=== PATIENT | male | born 1990 | race African-American/Black ===

== ENCOUNTER 2019-03-25 11:47 | Emergency (ER) | payer SELFPAY ==
[2019-03-25 12:14] VITALS: BP 143/72; PULSE 85; TEMP 97.5; BMI 30.2
[2019-03-25] MEDS ORDERED: SODIUM CHLORIDE 1,000 ML IV STA (14:01)
[2019-03-25] MEDS ORDERED: KETOROLAC TROMETHAMINE 15 MG/ML VIAL IVPUSH ONE (15:00)
[2019-03-25] MEDS ORDERED: ACETAMINOPHEN 1000 MG/100 ML VIAL (NON FORMULARY) IVPB ONE (15:00)
[2019-03-25] MEDS ORDERED: ACETAMINOPHEN INJECTION 100 ML IVPB ONE (15:17)
[2019-03-25] MEDS ORDERED: KETOROLAC TROMETHAMINE 15 MG/ML VIAL ONE (15:17)
[2019-03-25 15:26] LABS: EOS % 3.8 % (0-4.5); HEMATOCRIT 42.9 % (35.4-49); HEMOGLOBIN 14.4 GM/dL (11.7-16.9); LYMPH % 33.6 % (8-40); MCH 28.8 pg (25.7-33.7); MCHC 33.6 g/dl (32.0-35.9); MEAN CELL VOLUME 85.9 fl (80-96); MEAN PLT VOLUME 8.4 fl (7.5-11.1); MONO % 9.6 % (3.8-10.2); PLATELET COUNT 254 K/MM3 (134-434); RDW 11.8 % (11.9-15.9); WHITE BLOOD COUNT 5.7 K/mm3 (4.0-10.0)
[2019-03-25 15:36] LABS: EPI CELLS 0.9 /HPF (0-5/HPF); URINE APPEARANCE CLEAR; URINE BACTERIA 3.4 /hpf (NEGATIVE); URINE BILIRUBIN NEGATIVE (NEGATIVE); URINE CASTS 1 /lpf (0-8); URINE COLOR YELLOW; URINE GLUCOSE (UA) NEGATIVE (NEGATIVE); URINE KETONE TRACE (NEGATIVE); URINE LEUK ESTERASE TRACE (NEGATIVE); URINE NITRITE NEGATIVE (NEGATIVE); URINE PROTEIN NEGATIVE (NEGATIVE); URINE RBC 1 /hpf (0-4); URINE WBC 4 /hpf (0-5)
--- NOTE | 2019-03-25 15:53 | PDOC ---
Documentation entered by Shahida Doan SCRIBE, acting as scribe for Jessenia Small MD. Jessenia Small MD: This documentation has been prepared by the elenaibe, Shahida Doan SCRIBE, under my direction and personally reviewed by me in its entirety. I confirm that the documentation accurately reflects all work, treatment, procedures, and medical decision making performed by me. History of Present Illness - General Chief Complaint: Pain, Acute Stated Complaint: KIDNEY PAIN Time Seen by Provider: 03/25/19 14:00 History Source: Patient Exam Limitations: No Limitations - History of Present Illness Initial Comments: 03/25/19 15:51 The patient is a 28 year old male with no significant past medical history who presents to the emergency department with initial bilateral flank pain for 1 week, worse on left and radiation to left abdomen and groin. Currently with left flank and back pain, rated a 7/10 in severity, intermittent with shooting pain going down to his groin. The patient reports that he has experienced some associated nausea, urinary frequency, and watery diarrhea during this week. The patient reports family history or kidney stones (mother and father). He also reports a known left sided hernia, but no issues. 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 The patient reports that he is sexually active with one partner. He denies any past history of STDs or any current concerns. The patient denies any other symptoms. He denies any fever, chills, constipation, or other urinary symptoms. He denies any chest pain, shortness of breath, headache, dizziness, weakness, numbness, or tingling sensations. He denies any other complaints. It is noted that the patient has been taking 600 mg ibuprofen for pain every 7 hours for his left sided flank pain, with some relief. He states that he did not taking any pain meds today. Past History - Past Medical History Allergies/Adverse Reactions: Allergies Allergy/AdvReac Type Severity Reaction Status Date / Time No Known Drug Allergies Allergy Verified 03/25/19 12:11 pollen extracts Allergy Verified 03/25/19 12:11 Home Medications: Ambulatory Orders Azithromycin [Zithromax -] 250 mg PO UTDICT #6 tab 10/07/17 Ibuprofen 600 mg PO Q6H PRN #20 tablet 03/25/19 COPD: No - Immunization History Immunization Up to Date: Yes - Suicide/Smoking/Psychosocial Hx Smoking History: Current every day smoker Number of Cigarettes Smoked Daily: 2 Information on smoking cessation initiated: No 'Breaking Loose' booklet given: 10/07/17 Hx Alcohol Use: No Drug/Substance Use Hx: No Substance Use Type: None Review of Systems - Review of Systems Able to Perform ROS?: Yes Comments:: 03/25/19 15:51 Review of systems Constitutional: no fevers or chills. HEENT: no headache or dizziness. No congestion. CVS: no cp or syncope. Resp: no sob. No cough. Gastrointestinal: (+)nausea, diarrhea. no vomiting. No bloody stools. Genitourinary: (+)frequency. no hematuria. No dysuria, no urgency. No testicular or scrotal pain/swelling. MUSCULOSKELETAL:(+) left sided flank pain. No joint pain and swelling. No neck pain. SKIN: no redness or skin changes, no discharge, no rash. No wounds. Hematologic: no easy bruising/bleeding. NEUROLOGIC: No headache, dizziness, LOC or altered mental status. No weakness, numbness or tingling. Psych: no anxiety or depression Allergic/Immunologic: no allergies All other systems reviewed and negative, or as documented in HPI. *Physical Exam - Vital Signs Last Vital Signs Temp Pulse Resp BP Pulse Ox 97.5 F L 85 18 143/72 97 03/25/19 12:11 03/25/19 12:11 03/25/19 12:11 03/25/19 12:11 03/25/19 12:11 - Physical Exam Comments: 03/25/19 15:51 Physical exam: General: Well appearing, awake and alert, NAD. HEENT: NCAT, PERRL, EOMI, clear conjunctiva, anicteric, moist mucus membranes, clear oropharynx, no oral lesions.. Neck: neck supple, FROM Resp: CTAB, normal and even respirations, no respiratory distress CVS: RRR, no murmurs, 2+ peripheral pulses throughout, no peripheral edema Abdomen: soft, NTND, no peritoneal signs. no CVAT. : normal external genitalia, no lesions, normal testicular lie, no scrotal or testicular edema or tenderness. no hernia. no urethral discharge. Back: nontender, normal inspection and ROM MSK: no edema, BEE x4, ROM intact. No clubbing or cyanosis. normal bulk and tone. Neuro: alert Skin: warm and well perfused, cap refill <2 sec, normal color Procedures - Bedside Ultrasound Remarks: 03/25/19 18:46 POCUS renal exam performed, indication includes abdominal/flank pain. views obtained: bilateral kidneys in short and long axis, bladder. findings: no evidence of hydronephrosis. Impression: no acute pathology ED Treatment Course - LABORATORY CBC & Chemistry Diagram: 03/25/19 15:13 03/25/19 15:13 - RADIOLOGY Radiology Studies Ordered: Category Date Time Status SPIRAL- RENAL-STONE CT [CT] Stat CT Scan 03/25/19 14:23 Ordered Medical Decision Making - Medical Decision Making 03/25/19 15:01 I, Jessenia Small MD, attest that this document has been prepared under my direction and personally reviewed by me in its entirety. I further attest, that it accurately reflects all work, treatment, procedures and medical decision -making performed by me. See HPI for details Vital signs reviewed, wnl. DDx abdominal pain: Renal colic, sx ureteral stone/obstruction, biliary colic , metabolic/electrolyte derangements. GERD, PUD, esophageal spasm, pancreatitis , hepatitis, constipation, colitis, gastroenteritis, UTI, pyelonephritis, ileus , SBO, medication side effect, hernia, appendicitis, diverticulitis Prior notes reviewed, including admissions, discharges and consultations. laboratory results and imaging reviewed, basic labs and lytes wnl, normal Cr. normal lipase UA_unremarkable, trace ketones, no sig blood or s/s infection ED course - IVF, analgesia and reassess. much improved clinically, no acute events or further pain in flank/back. -bedside renal sono no hydro bilaterally - CT spiral to eval for stone/renal colic vs symptomatic ureteral stone. 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 Patient and family made aware of impression and plan, return precautions discussed (including but not limited to worsening pain or symptoms), fevers, or signs of infection, chest pain, respiratory distress, inability to tolerate oral intake, dehydration, syncope, or neurologic changes). Follow up with PMD and/or specialist as recommended, follow up information provided, take medications as instructed for duration of time. continue with supportive care, avoid triggers and precipitants. All questions answered to patient's satisfaction and expressed understanding and comfort with this. Patient does not suffer from an acute life-threatening medical condition at this time he is safe for outpatient follow-up. 03/25/19 15:01 03/25/19 15:43 03/25/19 18:46 03/25/19 18:47 *DC/Admit/Observation/Transfer Diagnosis at time of Disposition: Flank pain, Renal colic - Discharge Dispostion Disposition: HOME Condition at time of disposition: Improved Decision to Admit order: No - Prescriptions Prescriptions: Ibuprofen 600 mg PO Q6H PRN #20 tablet PRN Reason: Pain - Referrals Referrals: [facility] [place] [facility] [Provider Group] [facility] [Provider Group] - Patient Instructions Printed Discharge Instructions: Kidney Stones -- Adult, DI for Low Back Pain, DI for Flank Pain Additional Instructions: ibuprofen or NSAIDS/tylenol for mild to moderate pain, adequate hydration and oral fluids and air conditioning in hot weather. return precautions discussed including worsening s/s, fevers/systemic symptoms, inability to tolerate PO, worsening abdominal pain sx, dehydration, vomiting or other changes. Discharge for patients: Drink plenty of water/fluids, avoid caffeine or alcohol Ibuprofen/naproxen/acetaminophen as needed for [id number] pain. Use Motrin (also called Ibuprofen or Advil) 400 to 600 mg every 6 hours as needed for pain. If you have any stomach discomfort while taking Motrin, you can use TUMS to help. Return to ER if you experience persistent pain/vomiting/fever/dehydration, difficulty urinating or inability to tolerate oral intake. your pain was either back or flank related, your CT imaging was negative for pathology, you could have a muscular strain vs. passed kidney stone Follow-up with your primary doctor within the next 2-3 days. Please bring your labs and imaging with you to your appointment. - Post Discharge Activity
[2019-03-25 15:56] LABS: ALBUMIN 3.9 g/dl (3.4-5.0); ALK PHOS 88 U/L (45-117); ANION GAP 4 MMOL/L (8-16); BILIRUBIN,TOTAL 0.4 mg/dL (0.2-1); BLOOD UREA NITROGEN 10 mg/dL (7-18); CALCIUM 9.3 mg/dL (8.5-10.1); CHLORIDE 105 mmol/L (98-107); CO2 31 mmol/L (21-32); GLUCOSE,RANDOM 86 mg/dL (74-106); LIPASE 271 U/L (73-393); POTASSIUM 4.6 mmol/L (3.5-5.1); SGOT/AST 33 U/L (15-37); SGPT/ALT 62 U/L (13-61); SODIUM 141 mmol/L (136-145); TOT PROT 7.4 g/dl (6.4-8.2)
== END 2019-03-25 19:52 | disposition home or self-care (01) ==
LOC: JER 11:47
PROC: 3E033NZ Introduction of Analgesics, Hypnotics, Sedatives into Peripheral Vein, Percutaneous Approach (ICD-10-PCS; principal; 2019-03-25)
PROC: 3E0333Z Introduction of Anti-inflammatory into Peripheral Vein, Percutaneous Approach (ICD-10-PCS; 2019-03-25)
PROC: 3E0337Z Introduction of Electrolytic and Water Balance Substance into Peripheral Vein, Percutaneous Approach (ICD-10-PCS; 2019-03-25)
DX: N20.0 Calculus of kidney (principal); R10.31 Right lower quadrant pain; F17.210 Nicotine dependence, cigarettes, uncomplicated
CPT/HCPCS: 36415; 74176-TC; 80053; 81003; 83690; 85025; 87086; 99281-25; J0131; J7030

== ENCOUNTER 2021-02-25 13:49 | Emergency (ER) | payer SELFPAY | END 2021-02-25 14:14 | disposition home or self-care (01) | LOC: JVIRT 13:49 | DX: Z20.822 Contact with and (suspected) exposure to COVID-19 (principal) | CPT/HCPCS: C9803; G2251-GT; Q3014-GT; U0003 ==

== ENCOUNTER 2021-09-14 14:26 | Emergency (ER) | payer OTHER ==
[2021-09-14 14:48] VITALS: BP 141/82; PULSE 72; TEMP 98.5; BMI 29.2
[2021-09-14] MEDS ORDERED: ALBUTEROL SO4 2.5/IPRATROPIUM 0.5 INH SOL 3 ML VIAL.NEB. NEB ONE (15:44)
== END 2021-09-14 19:11 | disposition left against medical advice (07) ==
LOC: JERFT 14:26 → JER 14:26 → JERFT 15:35
DX: R05.1 Acute cough (principal)
CPT/HCPCS: 99281-25

== ENCOUNTER 2021-11-03 16:23 | Emergency (ER) | payer SELFPAY ==
[2021-11-03 16:35] VITALS: BP 124/76; PULSE 67; TEMP 98; BMI 29.4
[2021-11-03 18:39] LABS: EPI CELLS 1 /uL (0-25.1); HYALINE CASTS 4 /uL (0-3.1); URINE APPEARANCE CLOUDY; URINE BACTERIA >9,000 /uL (0-1359); URINE BILIRUBIN NEGATIVE (NEGATIVE); URINE COLOR YELLOW; URINE GLUCOSE (UA) NEGATIVE (NEGATIVE); URINE KETONE NEGATIVE (NEGATIVE); URINE LEUK ESTERASE 2+ (NEGATIVE); URINE NITRITE POSITIVE (NEGATIVE); URINE PROTEIN NEGATIVE (NEGATIVE); URINE RBC 21 /uL (0-23.9); URINE WBC 707 /uL (0-25.8)
[2021-11-03] MEDS ORDERED: CIPROFLOXACIN 500 MG TABLET (RESTRICTED TO ID) PO ONE (19:19)
[2021-11-03] MEDS ORDERED: PHENAZOPYRIDINE HCL 100 MG TABLET (FP) PO ONE (19:40)
[2021-11-03] MEDS ORDERED: PHENAZOPYRIDINE HCL 100 MG TABLET (FP) ONE (19:42)
== END 2021-11-03 19:50 | disposition home or self-care (01) ==
LOC: JER 16:23
DX: N39.0 Urinary tract infection, site not specified (principal)
CPT/HCPCS: 36415; 81003; 87086; 87186; 87491; 87591; 87661; 99283-25